=== PATIENT | female | born 1930 | race Two or more races ===

== ENCOUNTER 2019-11-30 17:04 | Inpatient (IN) | payer MEDICARE ==
[~2019-11-30] VITALS: Ht 149.9 cm; Wt 38.1 kg
[2019-11-30] MEDS ORDERED: ACETAMINOPHEN ES 500 MG TABLET PO ONE (17:30)
[2019-11-30] MEDS ORDERED: ACETAMINOPHEN ES 500 MG TABLET ONE (17:33)
[2019-11-30 17:44] LABS: BASOPHILS # (AUTO) 0.1 /CMM (0.0-0.2); BASOPHILS % (AUTO) 0.8 % (0.0-2.0); HEMATOCRIT 34 % (33-45); HEMOGLOBIN 11.2 g/dL (11.5-14.8); LYMPHOCYTES # (AUTO) 1.4 /CMM (0.8-4.8); LYMPHOCYTES % (AUTO) 18.6 % (20.0-44.0); MEAN CORPUSCULAR HGB CONC 33 g/dl (31.0-36.0); MEAN CORPUSCULAR VOLUME 95 fL (82-100); MONOCYTES # (AUTO) 0.5 /CMM (0.1-1.30); NEUTROPHILS # (AUTO) 5.5 /CMM (1.8-8.9); NEUTROPHILS % (AUTO) 71.6 % (43.0-81.0); PLATELET COUNT (AUTO) 251 /CMM (150-450); RED BLOOD CELL COUNT(AUTO) 3.56 MIL/uL (4.0-5.2); WHITE BLOOD COUNT (AUTO) 7.7 K/uL (4.3-11.0)
--- NOTE | 2019-11-30 17:46 | NUR ---
[id number], from home, c/o left arm pain s/p tripped and fall,-ko, open fracture, On room air, breathing evenly and unlabored. connected to the monitor and pulse ox. kept comfortable, will continue to monitor accordingly.
[2019-11-30 17:53] LABS: CALCIUM, SERUM 9.1 mg/dL (8.5-10.1); CREATININE 0.6 mg/dL (0.6-1.3); POTASSIUM 3.7 mmol/L (3.5-5.1)
--- NOTE | 2019-11-30 17:56 | NUR ---
ethan at bedside for xray
[2019-11-30] MEDS ORDERED: CEFAZOLIN 2 GM in IV D5W 100 ML IV ONE (18:30)
--- NOTE | 2019-11-30 18:30 | NUR ---
CALLED [facility] [phone] ITS REGINALDO
[2019-11-30] MEDS ORDERED: TDAP [DIPH/PERTUSSIS/TET] 0.5 ML VIAL IM ONE ×2 (18:54→19:00)
--- NOTE | 2019-11-30 18:59 | NUR ---
EDNICE-DAUGHTER IN LAW [phone].
[2019-11-30] MEDS ORDERED: ALEN70TA3 PO (19:14)
[2019-11-30] MEDS ORDERED: QUET25TA PO (19:14)
--- NOTE | 2019-11-30 19:14 | NUR ---
BLOOD BANK SUPERVISOR/MED RECON MED-RECON DONE. INFO OBTAINED FROM GEORGES ([phone]) FROM [facility] AND [facility].
--- NOTE | 2019-11-30 19:29 | NUR ---
LEFT FOR CT
--- NOTE | 2019-11-30 20:30 | NUR ---
REPORT GIVEN TO DK
--- NOTE | 2019-11-30 20:42 | NUR ---
PT WAS PROVIDED W/ R KNEE IMMOBILZER PER DR NAGEL'S ORDER
--- NOTE | 2019-11-30 21:15 | NUR ---
PT WAS TRANSFERRED TO BED 208 IN STABLE CONDITION
[2019-11-30 21:20] VITALS: BP 149/74
[2019-11-30] MEDS ORDERED: IV D5/0.45 NACL 1,000 ML IV PRN (21:45)
[2019-11-30] MEDS ORDERED: MAGNESIUM HYDROXIDE 30 ML UDC PO PRN (22:00)
[2019-11-30] MEDS ORDERED: ZOLPIDEM TARTRATE 5 MG TABLET PO PRN (22:00)
[2019-11-30] MEDS ORDERED: ACETAMINOPHEN 325 MG TABLET PO PRN (22:00)
[2019-11-30] MEDS ORDERED: MORPHINE SULFATE INJ 2 MG/ML DISP.SYRIN IV PRN (22:00)
[2019-11-30] MEDS ORDERED: Z GUARD REMEDY 2 OZ OINT TP PRN (22:00)
[2019-11-30] MEDS ORDERED: ONDANSETRON HCL/PF 4 MG/2 ML VIAL IVP PRN (22:00)
[2019-11-30] MEDS ORDERED: MAG HYDROX/AL HYDROX/SIMETH 30 ML UDC PO PRN (22:00)
--- NOTE | 2019-11-30 22:00 | NUR ---
ADMISSION NOTE PATIENT ADMITTED FROM ER TO [facility] BED [address] SHERMAN FROM LEFT WRIST FX. PATIENT HS HX OF DEMENTIA ALWERT AND ORIENTED X2. PATIENT IS WEARING IMMOBILIZER TO RIGHT LEG, AND HAS SPLINT TO LEFT WRIST. PATIENT HAS PATENT 18 GAUGE TO RIGHT ARM AC. ADMISSON ASSESSMENT TO BE PERFORMED USING RECORDS AND SOME INPUT FROM PATIENT BUT SHE IS POOR HISTORIAN. UNDERSTANDS ARGENTINE BUT PRIMARY LANGUAGE IS JAPENESE.
[2019-11-30] MEDS: HYDROCODONE/APAP 5/325MG 1 EACH TABLET PO PRN (22:17)
[2019-12-01] VITALS (11 sets, daily range): BP systolic 124–149; BP diastolic 60–71
--- NOTE | 2019-12-01 00:05 | NUR ---
CONSENT FOR SURGERY SIGNED FOR ORIF OF LEFT WRIST SCHEDULED TOMORROW AM WITH DR. RAMIREZ. PATIENT DECLINED THE USE OF PROFESSIONAL HEALTHCARE REPRESENTATIVE. PATIENT SIGEND CONCENTS AND VERBALIZED UNDERSTANDING OF POC.
--- NOTE | 2019-12-01 02:10 | NUR ---
PT MOVED TO RM. 203 BED 1, ATTEMPTING TO GET OOB BED ALARM SOUNDING AND PATIENT FOPUND ATTEMPTING TO GET OOB TO USE RESTROOM IN THE PROCESS. PATIENT SPLINT TO LEFT ARM CAME UNRAVELED AND FELL OFF AND BLEEDING. PATIENT HELPED BACK INTO BED. REORIENTED ON HER ACTIVITY OF BED REST. SPLINT REAPPLIED WITH JORDAN BANDAGE AND DRESSING REINFORCED WITH GAUZE. PATIENT MOVED FROM ROOM 208 BED 2 TO ROOM 203 BED 1 TO BE MONITORED MORE CLOSELY FOR SAFETY BED ALARM ACTIVE SR X2 CALL LIGHT IN REACH. WILL CONT TO MONITOR.
[2019-12-01 02:55] LABS: APPEARANCE,URINE CLEAR (CLEAR); BILIRUBIN,URINE NEGATIVE (NEGATIVE); BLOOD, URINE TRACE Ery/uL (NEGATIVE); COLOR,URINE YELLOW (YELLOW); KETONES,URINE NEGATIVE (NEGATIVE); LEUKOCYTE ESTERASE ,URINE SMALL (NEGATIVE); NITRITE, URINE NEGATIVE (NEGATIVE); PROTEIN,URINE NEGATIVE (NEGATIVE); UGLUCOSE NEGATIVE (NEGATIVE); UROBILINOGEN,URINE 0.2 EU/dL (0.2)
[2019-12-01 03:16] LABS: BACTERIA,URINE None seen /HPF (None Seen); RBC,URINE 0-2 /HPF (0-2); SQUAMOUS EPITHELIAL CELL,UR Few /HPF (None Seen); WBC,URINE 0-2 /HPF (0-3)
--- NOTE | 2019-12-01 06:30 | NUR ---
RN PM CLOSING NOTE PATIENT RESTING IN BED IN NO APPARENT DISTRESS. IMMOBILIZER TO RIGHT KNEE IN PLACE. PATIENT IS STILL WEARING SPLINT TO LEFT WRIST AND FOREARM. NO S/S OF BLEEDING AT SITE. IV RIGHT AC RUNNING D5 1/N NS AT 75 ML PER HOUR NO S/S OF INFILTRATION. PATIENT IN NO APPARENT PAIN RATED 1/10 PER FLACC. SCHEDULED FOR ORF WITH DR. RAMIREZ AT 11AM. BED DOWN LOCKED CALL LIGHT IN REACH. WILL ENDORSE POC TO DAY SHIFT RN.
[2019-12-01 06:48] LABS: BASOPHILS % (AUTO) 0.4 % (0.0-2.0); EOSINOPHILS % (AUTO) 2.4 % (0.0-6.0); HEMATOCRIT 32 % (33-45); HEMOGLOBIN 10.8 g/dL (11.5-14.8); LYMPHOCYTES # (AUTO) 1.1 /CMM (0.8-4.8); LYMPHOCYTES % (AUTO) 17.2 % (20.0-44.0); MEAN CORPUSCULAR HGB CONC 34 g/dl (31.0-36.0); MEAN CORPUSCULAR VOLUME 93 fL (82-100); MONOCYTES # (AUTO) 0.4 /CMM (0.1-1.30); MONOCYTES % (AUTO) 7.1 % (2.0-12.0); NEUTROPHILS # (AUTO) 4.5 /CMM (1.8-8.9); NEUTROPHILS % (AUTO) 72.9 % (43.0-81.0); PLATELET COUNT (AUTO) 218 /CMM (150-450); RED BLOOD CELL COUNT(AUTO) 3.44 MIL/uL (4.0-5.2); WHITE BLOOD COUNT (AUTO) 6.2 K/uL (4.3-11.0)
--- NOTE | 2019-12-01 07:04 | NUR ---
telephone consent for surgical procedure orif left wrist and consent for anesthesiology and blood transfusion recieved from daughter in law abdoul rouse. patient is resident of [facility]. mae spray i painter. [facility] phone [phone]
[2019-12-01 07:06] LABS: CALCIUM, SERUM 8.7 mg/dL (8.5-10.1); CREATININE 0.6 mg/dL (0.6-1.3); PHOSPHORUS 3.3 mg/dL (2.5-4.9); POTASSIUM 3.6 mmol/L (3.5-5.1)
[2019-12-01 07:09] LABS: THYROID STIMULATING HORMONE 1.559 uIU/mL (0.358-3.74)
--- NOTE | 2019-12-01 07:28 | NUR ---
MS RN OPENING NOTES RECEIVED PATIENT AWAKE IN BED IN NO ACUTE SIGNS OF DISTRESS. A/O X 1-2. BELARUSIAN SPEAKING, DENIES PAIN OR DISCOMFORTS AT THIS TIME. PT FOR LEFT WRIST ORIF TODAY, NPO MAINTAINED. RIGHT KNEE IMMOBILIZER IN PLACE. ON ROOM AIR, BREATHING EVEN AND UNLABORED. IV ACCESS ON RAC G#18 INTACT AND PATENT, IVF OF D5 1/2 NS @ 75ML/HR INFUSING, NO S/S OF INFILTRATIONS NOTED. SAFETY MEASURES IN PLACE: BED IN LOWEST LOCKED POSITION WITH SR UP X2. CALL LIGHT WITHIN REACH. WILL CONTINUE TO MONITOR.
[2019-12-01] MEDS: PANTOPRAZOLE 40 MG VIAL IV SCH (09:06)
--- NOTE | 2019-12-01 10:49 | NUR ---
RN NOTES PT PICKED-UP FOR SURGERY VIA HER BED.
[2019-12-01] MEDS ORDERED: BUPIVACAINE 0.5 % PF 150 MG/30 ML VIAL ONE (11:35)
[2019-12-01] MEDS ORDERED: BACITRACIN 50000 UNITS/VIAL ONE (11:35)
[2019-12-01] MEDS ORDERED: FENTANYL PF 100MCG/2ML AMPUL ONE ×2 (12:57→13:25)
[2019-12-01] MEDS ORDERED: ONDANSETRON HCL/PF 4 MG/2 ML VIAL ONE (13:20)
--- NOTE | 2019-12-01 14:12 | NUR ---
RN NOTES PATIENT RETURNED TO UNIT VIA HER BED S/P WASHOUT, DEBRIDEMENT AND ORIF OF LEFT DISTAL RADIUS FRACTURE BY DR RAMIREZ. PT SLIGHTLY LETHARGIC BUT RESPONSIVE TO VERBAL AND TACTILE STIMULI. V/S TAKEN; BP 145/66 , HR 85 . R 18 , T97.8F AND SP02 99-100% SP02 ON 02 VIA N/C @ 2LPM. PT NOTED WITH DRESSING WRAPPED WITH JORDAN BANDAGE ON LEFT LOWER ARM WITH SLING ON LEFT ARM IN PLACE. SCD ON LEFT LEG AND RIGHT KNEE IMMOBILIZER IN PLACE. ALL POST OP ORDERS MADE AND CARRIED OUT. WILL CONTINUE TO MONITOR.
--- NOTE | 2019-12-01 14:18 | NUR ---
RN NOTES INFORMED DR DELUCA THAT PT CAME BACK FROM SURGERY S/P ORIF OF LEFT RADIUS AND TO DO MED RECON.
[2019-12-01] MEDS: IV LR 1000 ML 1,000 ML IV PRN (14:22)
[2019-12-01] MEDS: ANCEF 1 G in IV D5W 50 ML IV SCH ×2 (14:45→22:37)
[2019-12-01] MEDS: HYDROCODONE/APAP 5/325MG 1 EACH TABLET PO PRN (15:13)
--- NOTE | 2019-12-01 18:47 | NUR ---
MS RN CLOSING NOTES PATIENT IN BED AWAKE AND WATCHING TV AT THIS TIME. A/O X 1-2. PANAMANIAN SPEAKING WITH LITTLE SYRIAC. NOTED WITH EPISODE OF CONFUSION AND FORGETFULNESS DURING SHIFT, REDIRECTED PRN. RIGHT KNEE IMMOBILIZER IN PLACE. PT WITH LEFT ARM SPLINT AND DRESSING C/D/I WITH SLING IN PLACE. ON ROOM AIR, BREATHING EVEN AND UNLABORED. NO SOB NOTED DURING THE DAY. IV ACCESS ON RAC G#18 INTACT AND PATENT, IVF OF LR @ 75ML/HR INFUSING, NO S/S OF INFILTRATIONS NOTED. SAFETY MEASURES IN PLACE: BED IN LOWEST LOCKED POSITION WITH SR UP X2. CALL LIGHT WITHIN REACH. ALL NEEDS AND CARE PROVIDED WELL. WILL ENDORSE TO CREDIT RISK ANALYTICS MANAGER NURSE FOR NAMITA.
--- NOTE | 2019-12-01 22:38 | NUR ---
iv leaking 18 gauge removed from right ac. new iv started to right wrist 24 gauge on one attempt. patient tolerated proocedure well.
[2019-12-02] MEDS: IV LR 1000 ML 1,000 ML IV PRN (05:31)
--- NOTE | 2019-12-02 07:20 | NUR ---
MS RN CLOSING NOTES PATIENT IN BED AWAKE . A/O X 1-2. LUXEMBOURGER SPEAKING WITH LITTLE GREENLANDIC. PT HAD MULTIPLE EPISODES OF CONFUSION AND FORGETFULNESS DURING SHIFT, REDIRECTED PRN MAINLY KEPT TRYING TO GET OB TO USE THE BR PATIENT ASSISTED WITH BATHROOM NEEDS AND RESETTLED INTO BED. RIGHT KNEE IMMOBILIZER IN PLACE. PT WITH LEFT ARM SPLINT AND DRESSING C/D/I WITH SLING IN PLACE. ON ROOM AIR, BREATHING EVEN AND UNLABORED. IV ACCESS ON RIGHT FOREARM G#24 INTACT AND PATENT, IVF OF LR @ 75ML/HR INFUSING, NO S/S OF INFILTRATIONS NOTED. SAFETY MEASURES IN PLACE: BED IN LOWEST LOCKED POSITION WITH SR UP X2. CALL LIGHT WITHIN REACH. ALL NEEDS AND CARE PROVIDED WELL. WILL ENDORSE TO DAY SHIFT FOR NAMITA.
[2019-12-02 08:00] VITALS: BP 138/76
--- NOTE | 2019-12-02 08:00 | NUR ---
RN MS NOTES PT IN BED, AWAKE, ALERT AND ORIENTED, VERBALLY RESPONSIVE, NO COMPLAINT OF PAIN AT THIS TIME, RESPIRATIONS NORMAL AND NOT LABORED, CALL LIGHT WITHIN REACH, NEEDS ATTENDED.
[2019-12-02 08:57] LABS: BASOPHILS % (AUTO) 0.1 % (0.0-2.0); EOSINOPHILS % (AUTO) 0.4 % (0.0-6.0); HEMATOCRIT 29 % (33-45); HEMOGLOBIN 9.9 g/dL (11.5-14.8); LYMPHOCYTES % (AUTO) 14.2 % (20.0-44.0); MEAN CORPUSCULAR HGB CONC 34 g/dl (31.0-36.0); MEAN CORPUSCULAR VOLUME 93 fL (82-100); MONOCYTES # (AUTO) 0.6 /CMM (0.1-1.30); MONOCYTES % (AUTO) 8.6 % (2.0-12.0); NEUTROPHILS # (AUTO) 5.3 /CMM (1.8-8.9); NEUTROPHILS % (AUTO) 76.7 % (43.0-81.0); PLATELET COUNT (AUTO) 214 /CMM (150-450); RED BLOOD CELL COUNT(AUTO) 3.15 MIL/uL (4.0-5.2); WHITE BLOOD COUNT (AUTO) 6.9 K/uL (4.3-11.0)
[2019-12-02 09:09] LABS: ALBUMIN 3.2 g/dL (3.4-5.0); BILIRUBIN,TOTAL 0.9 mg/dL (0.2-1.0); CALCIUM, SERUM 8.8 mg/dL (8.5-10.1); CREATININE 0.8 mg/dL (0.6-1.3); MAGNESIUM 1.8 mg/dL (1.8-2.4); PHOSPHORUS 2.6 mg/dL (2.5-4.9); POTASSIUM 3.7 mmol/L (3.5-5.1); TOTAL PROTEIN, SERUM 7.3 g/dL (6.4-8.2)
[2019-12-02] MEDS: PANTOPRAZOLE 40 MG VIAL IV SCH (09:55)
[2019-12-02] MEDS: ENOXAPARIN SODIUM 40 MG/0.4 ML DISP.SYRIN SQ SCH (09:58)
--- NOTE | 2019-12-02 10:48 | NUR ---
RN MS NOTES PT SEEN AND EXAMINED BY JEANNETTE LEY, PT QUESTIONS ANSWERED, RIGHT KNEE IMMOBILIZER IN PLACE, IV FLUIDS INFUSING WELL.
--- NOTE | 2019-12-02 12:48 | NUR ---
RN MS NOTES PT SEEN BY PHYSICAL THERAPIST, TOLERATED EXERCISES WELL , ABLE TO AMBULATE TO THE BATHROOM WITH ASSISTANCE, RIGHT KNEE IMMOBILIZER ON, SLING AT LEFT ARM IN PLACE. PT SEEN AND EXAMINED BY DR. HOWARD, PLAN OF CARE DISCUSSED WITH PT, VERBALIZED UNDERSTANDING.
[2019-12-02] MEDS ORDERED: ENOX40DI SQ (15:28)
[2019-12-02] MEDS ORDERED: LACT-54 PO (15:28)
[2019-12-02] MEDS ORDERED: HYDR-3972 PO (15:28)
[2019-12-02] MEDS ORDERED: MAGN400O6 PO (15:28)
[2019-12-02] MEDS ORDERED: PANT40TA2 PO (15:28)
[2019-12-02] MEDS ORDERED: CEPH-570 PO (15:34)
[2019-12-02 16:00] VITALS: BP 129/62
[2019-12-02] MEDS: ENSURE ENLIVE CHOC 237 ML CAN PO SCH (17:22)
[2019-12-02] MEDS ORDERED: QUETIAPINE FUMARATE 25 MG TABLET PO SCH (18:00)
--- NOTE | 2019-12-02 19:00 | NUR ---
RN MS NOTES PT AWAKE, ALERT AND FORGETFUL, WANTS TO SIT IN A WHEELCHAIR FOR NOW, ATE DINNER, TOLERATED WELL, SEEN BY DR. HOWARD, PLAN FOR D/C TO SNF TOMORROW, SPOKE WITH PT'S DAUGHTER DENICE, PLAN OF CARE DISCUSSED WITH HER, VERBALIZED UNDERSTANDING, DUE MEDS GIVEN, ALL NEEDS ATTENDED.
--- NOTE | 2019-12-02 19:20 | NUR ---
MS RN OPENING NOTES: RECEIVED PT IN RIANA CHAIR SHE APPEARS TO BE CONFUSED AND IS A HIGH FALL RISK PT. PT HAS A KNEE IMMOBILIZER OR RIGHT LOWER LEG. PT ALTERNATES BETWEEN SUDANESE AND GREEK AND IS A /X1-2. PT IS NOT CONNECTED TO IV FLUIDS AT THIS TIME SHE KEEPS FONDLING WITH HER IV LINE AND HER DRESSING ON LEFT ARM. PT ALSO KEEPS REMOVING LEFT ARM SLING SO IN THE MEANTIME, IT IS OFF. PT HAS IV ON R FOREARM #24 G AND IS PATENT AND INTACT. PT REORIENTED PRN. WILL CONTINUE TO MONITOR PT.
[2019-12-02 20:48] VITALS: BP 119/42
--- NOTE | 2019-12-03 04:00 | NUR ---
MS RN NOTES: PT PLACED IN BED AND IS COMFORTABLY ASLEEP. PT PLACED BACK ON IV LR 75ML/HR.
--- NOTE | 2019-12-03 07:30 | NUR ---
RN MS NOTES PT IN BED, AWAKE, ALERT AND ORIENTED, NO SIGN OF PAIN OR DISTRESS, IV FLUIDS INFUSING WELL, WITH PERIODS OF CONFUSION, BED ALARM ON AT ALL TIMES, CALL LIGHT WITHIN REACH, KEPT COMFORTABLE IN BED.
[2019-12-03] MEDS: ENSURE ENLIVE CHOC 237 ML CAN PO SCH ×2 (07:56→12:08)
[2019-12-03 08:00] VITALS: BP 105/43
[2019-12-03] MEDS: PANTOPRAZOLE 40 MG VIAL IV SCH (08:01)
[2019-12-03] MEDS: ENOXAPARIN SODIUM 40 MG/0.4 ML DISP.SYRIN SQ SCH (08:02)
--- NOTE | 2019-12-03 13:18 | NUR ---
RN MS NOTES PT IN BED, AWAKE, ALERT, DENIES PAIN, NOT IN DISTRESS, SLING AT LEFT ARM IN PLACE, IMMOBILIZER AT RIGHT LEG IN PLACE, SEEN BY DR. HOWARD, PLAN OF CARE DISCUSSED WITH PT. VERBALIZED UNDERSTANDING, DISCHARGE AND MEDICATION INSTRUCTIONS PROVIDED TO PT AND DAUGHTER IN LAW DENICE, VERBALIZED UNDERSTANDING, PT TO BE DISCHARGED TO [facility], SKIN ASSESSMENT DONE, BELONGINGS ACCOUNTED FOR, AWAITING FOR PT ELECTRONICS INSPECTOR BY CAREGIVER.
--- NOTE | 2019-12-03 14:00 | NUR ---
RN MS NOTES PT ASSISTED TO WHEELCHAIR, DENIES PAIN, NOT IN DISTRESS, PICKED UP BY CAREGIVER GEORGES, NEW MEDICATIONS CALLED IN TO [facility], PT'S PHARMACY, ASSISTED BY SALES OPERATIONS ANALYST TO HOSPITAL LOBBY VIA WHEELCHAIR, LEFT VIA PRIVATE CAR IN STABLE CONDTION.
== END 2019-12-03 14:00 | DRG 511 ==
LOC: ER 17:09 → MEDSG2 20:36
PROVIDERS: ADMIT Student in an Organized Health Care Education/Training Program; ATTEND Registered Nurse
PROC: 0PSJ04Z Reposition Left Radius with Internal Fixation Device, Open Approach (ICD-10-PCS; principal; 2019-12-01)
DX: S52.502A Unspecified fracture of the lower end of left radius, initial encounter for closed fracture (principal); S82.001A Unspecified fracture of right patella, initial encounter for closed fracture; N39.0 Urinary tract infection, site not specified; N17.9 Acute kidney failure, unspecified; S52.602A Unspecified fracture of lower end of left ulna, initial encounter for closed fracture; F03.90 Unspecified dementia, unspecified severity, without behavioral disturbance, psychotic disturbance, mood disturbance, and anxiety; D64.9 Anemia, unspecified; M19.90 Unspecified osteoarthritis, unspecified site; I25.10 Atherosclerotic heart disease of native coronary artery without angina pectoris; M81.0 Age-related osteoporosis without current pathological fracture; W01.0XXA Fall on same level from slipping, tripping and stumbling without subsequent striking against object, initial encounter; Y93.9 Activity, unspecified; Y92.009 Unspecified place in unspecified non-institutional (private) residence as the place of occurrence of the external cause
CPT/HCPCS: 36415; 70450-TC; 71045-TC; 72125-TC; 73080-TC; 73090-TC; 73100-TC; 73110; 73564-TC; 80048-TC; 80053-TC; 80061-TC; 81000-TC; 82728-TC; 83540-TC; 83735-TC; 84100-TC; 84443-TC; 85025-TC; 85610-TC; 85730-TC; 86850-TC; 87081-TC; 90715; 93307-TC; 97116-TC; 97530-TC; 97535-TC; A6403; C9113; G0378; J0690; J1100; J1650; J2405; J3010; J3490; J7060; J7120

== ENCOUNTER 2020-03-10 01:22 | Inpatient (IN) | payer MEDICARE ==
[~2020-03-10] VITALS: Ht 147.3 cm; Wt 38.6 kg
[~2020-03-10 01:22] MED LIST: ALEN70TA3 PO; CEPH-570 PO; ENOX40DI SQ; HYDR-3972 PO; LACT-54 PO; MAGN400O6 PO; PANT40TA2 PO; QUET25TA PO
[2020-03-10 01:55] LABS: BASOPHILS % (AUTO) 0.6 % (0.0-2.0); EOSINOPHILS % (AUTO) 0.6 % (0.0-6.0); HEMATOCRIT 32 % (33-45); HEMOGLOBIN 10.5 g/dL (11.5-14.8); LYMPHOCYTES # (AUTO) 0.3 /CMM (0.8-4.8); LYMPHOCYTES % (AUTO) 7.6 % (20.0-44.0); MEAN CORPUSCULAR HGB CONC 33 g/dl (31.0-36.0); MEAN CORPUSCULAR VOLUME 95 fL (82-100); MONOCYTES % (AUTO) 0.9 % (2.0-12.0); NEUTROPHILS # (AUTO) 3.8 /CMM (1.8-8.9); NEUTROPHILS % (AUTO) 90.3 % (43.0-81.0); PLATELET COUNT (AUTO) 165 /CMM (150-450); RED BLOOD CELL COUNT(AUTO) 3.37 MIL/uL (4.0-5.2); WHITE BLOOD COUNT (AUTO) 4.2 K/uL (4.3-11.0)
[2020-03-10] MEDS ORDERED: IV NS 0.9% 1,000 ML BAG IV ONE (02:00)
[2020-03-10 02:04] LABS: CALCIUM, SERUM 8.5 mg/dL (8.5-10.1); CARBON DIOXIDE 16 mmol/L (21-32); CHLORIDE 102 mmol/L (98-107); CREATININE 1.3 mg/dL (0.6-1.3); GLUCOSE 185 mg/dL (74-106); SODIUM SERUM 139 mmol/L (136-145); UREA NITROGEN, BLOOD 21 mg/dL (7-18)
[2020-03-10 02:16] LABS: ALANINE AMINOTRANSFERASE 16 U/L (12-78); ALBUMIN 2.8 g/dL (3.4-5.0); ALKALINE PHOSPHATASE 50 U/L (46-116); ASPARTATE AMINOTRANSFERASE 27 U/L (15-37); B-TYPE NATRIURETIC PEPTIDE 2200 PG/ML (0-125); BILIRUBIN,DIRECT 0.3 mg/dL (0.0-0.2); TOTAL PROTEIN, SERUM 6.7 g/dL (6.4-8.2)
--- NOTE | 2020-03-10 02:30 | NUR ---
URINE, COVID, FLU, RSV, BLOOD, AND CULTURES ALL SENT TO LAB.
--- NOTE | 2020-03-10 02:30 | NUR ---
SPOKE TO GEORGES WHO IS THE ADMINISTATOR OF THE RESIDENTIAL HOME WHERE PT LIVES. GAVE MORE INFORMATION TO WHY PT IS SICK. SAID PT HAD A FEVER OF 99.8 AND WAS GIVEN 1GRAM OF TYLENOL. ALSO HAD 1X EPISODE OF DIARRHEA TODAY.
[2020-03-10 02:31] LABS: CREATINE KINASE, TOTAL 100 U/L (26-192); FERRITIN 788 ng/mL (8-388)
--- NOTE | 2020-03-10 02:40 | NUR ---
DENICE DAUGHTER IN LAW. IN CHARGE OF MEDICAL DECISIONS FOR PT.
--- NOTE | 2020-03-10 02:45 | NUR ---
ZACH VINSON SPOKE TO PT DAUGHTER IN LAW DENICE
--- NOTE | 2020-03-10 02:45 | NUR ---
DALLAS YOUNG DNP AT BEDSIDE.
--- NOTE | 2020-03-10 02:46 | NUR ---
DALLAS YOUNG DNP AT BEDSIDE TO JEFF ALBERTO.
--- NOTE | 2020-03-10 02:53 | NUR ---
PATIENT CAME TO ER BED 5 [facility] JAS[facility]ER C/O SOB FROM [facility]. PATIENT ARRIVED WITH 89% O2 ON ROOM AIR. GIVEN 2L OF O2, NOW AT 94%. PATIENT IS AAOX2. BREATHING EVENLY AND UNLABORED ON ROOM AIR. PATIENT IS PLEASANT AND NOT IN ANY DISTRESS.
[2020-03-10 02:59] LABS: D-DIMER 8.92 mg/L(FEU (0.17-0.50)
[2020-03-10] MEDS ORDERED: ENOXAPARIN SODIUM 40 MG/0.4 ML DISP.SYRIN SQ ONE (03:00)
[2020-03-10] MEDS ORDERED: ENOXAPARIN SODIUM 40 MG/0.4 ML DISP.SYRIN SQ SCH (03:00)
--- NOTE | 2020-03-10 03:14 | NUR ---
REPORT GIVEN TO DANNA MONIQUE FOR NAMITA.
[2020-03-10] MEDS ORDERED: ZOLPIDEM TARTRATE 5 MG TABLET PO PRN (03:30)
[2020-03-10] MEDS ORDERED: ACETAMINOPHEN 325 MG TABLET PO PRN (03:30)
[2020-03-10] MEDS ORDERED: ONDANSETRON HCL/PF 4 MG/2 ML VIAL IVP PRN (03:30)
[2020-03-10] MEDS ORDERED: MAGNESIUM HYDROXIDE 30 ML UDC PO PRN (03:30)
[2020-03-10] MEDS ORDERED: Z GUARD REMEDY 2 OZ OINT TP PRN (03:30)
[2020-03-10] MEDS ORDERED: HYDROCODONE/APAP 5/325MG 1 EACH TABLET PO PRN (03:30)
[2020-03-10] MEDS ORDERED: MAG HYDROX/AL HYDROX/SIMETH 30 ML UDC PO PRN (03:30)
--- NOTE | 2020-03-10 03:40 | NUR ---
GILLES RN NOTE PATIENT ARRIVED TO UNIT AT THIS TIME VIA [place]. A&O X1. BREATHING IS EVEN AND NON LABORED. NO S/S OF SOB AT THIS TIME. ON O2 2 L VIA NC, SATURATING AT 97% AT THIS TIME. ABLE TO MAKE NEEDS KNOWN. VERBALLY RESPONSIVE IN ISRAELI, ABLE TO UNDERSTAND FEW MALAY WORDS. SPEECH IS UNCLEAR AT TIMES. PERRLA. PATIENT IS COOPERATIVE. ABLE TO ASSIST IN TURNING AND REPOSITIONING. ON MAYNARD, URINE IS CLEAR AND YELLOW IN COLOR. IV SITE ON RAC GAUGE 18 IS CLEAN, DRY, AND PATENT. PATIENT IS INCONTINENT OF BOWEL. NOTED HEALED WOUND ON SACRAL AREA. CLEANSED SACRAL AREA WITH NS, PAT, DRY, AND COVERED WITH MEPILEX. SKIN IS DRY AND WARM TO TOUCH. IN NO APPARENT DISTRESS NOTED AT THIS TIME. BED IS LOCKED AND LOWERED TO LOW POSITION FOR SAFETY. CALL LIGHT IS WITHIN EASY REACH. WILL CONTINUE TO MONITOR.
[2020-03-10 03:54] LABS: APPEARANCE,URINE TURBID (CLEAR); BILIRUBIN,URINE NEGATIVE (NEGATIVE); BLOOD, URINE LARGE Ery/uL (NEGATIVE); COLOR,URINE YELLOW (YELLOW); KETONES,URINE NEGATIVE (NEGATIVE); LEUKOCYTE ESTERASE ,URINE MODERATE (NEGATIVE); NITRITE, URINE POSITIVE (NEGATIVE); PROTEIN,URINE 100 mg/dl (NEGATIVE); UGLUCOSE NEGATIVE (NEGATIVE); UROBILINOGEN,URINE 0.2 EU/dL (0.2)
[2020-03-10 04:00] VITALS: BP 125/66
[2020-03-10 04:03] VITALS: BP 125/68
[2020-03-10] MEDS ORDERED: CEFEPIME 1 GM VIAL ONE (04:17)
[2020-03-10 04:26] LABS: BACTERIA,URINE Moderate /HPF (None Seen); RBC,URINE 21-50 /HPF (0-2); SQUAMOUS EPITHELIAL CELL,UR Few /HPF (None Seen); WBC,URINE TOO NUMEROUS TO COUN /HPF (0-3)
[2020-03-10] MEDS: CEFEPIME 1 GM in IV D5W 50 ML IV SCH (04:54)
--- NOTE | 2020-03-10 06:36 | NUR ---
GILLES RN NOTE PATIENT REMAINED STABLE SINCE ADMISSION. NO SIGNIFICANT CHANGES NOTED. NO S/S OF SOB OR DIFFICULTY BREATHING. PATIENT KEPT ON O2 2L VIA NC. WILL ENDORSE TO AM SHIFT RN FOR CONTINUATION OF CARE.
--- NOTE | 2020-03-10 07:00 | NUR ---
RN GILLES NOTE PATIENT ASLEEP BUT EASILY WOKEN UP, PATIENT IS DNR/DNI WITH RULE OUT COVID ISOLATION, PATIENT HAS 2L SATURATING >95% PATIENT A/OX1 COOPERATIVE ON THE MONITOR ST WITH 1ST DEGREE AV BLOCK, MAYNARD PATENT AND DRAINING. PATIENT RAC 18# FLUSHED AND PATIENT NO SIGNS OF INFILTRATION OR REDNESS. BED LOCKED LOWEST POSITION CALL LIGHT WITH IN REACH ALL SAFETY MEASURE IMPLEMENTED PER HOSPITAL POLICY
[2020-03-10 08:00] VITALS: BP_SYST 137; BP_DIAS 65; BP_DIAS 68
[2020-03-10] MEDS ORDERED: HYDR-4384 PO (08:21)
[2020-03-10] MEDS ORDERED: QUET50TA PO (08:21)
[2020-03-10] MEDS ORDERED: LACT-54 PO (08:21)
[2020-03-10] MEDS ORDERED: ENOXAPARIN SODIUM 30 MG/0.3 ML DISP.SYRIN SQ SCH (09:00)
--- NOTE | 2020-03-10 09:00 | NUR ---
RN GILLES - TALKED TO MRS. LAMONTE GALDAMEZ ( DAUGHTER IN LAW FOR UPDATES )
--- NOTE | 2020-03-10 09:07 | NUR ---
RN [facility] NON ADMIN LOVENOX 9AM. CHANGED TO 9 PM
[2020-03-10] MEDS: IV NS 0.9% 1,000 ML IV PRN ×2 (09:39→22:00)
[2020-03-10] MEDS: PANTOPRAZOLE 40 MG TABLET.DR PO SCH (09:39)
[2020-03-10] MEDS: POTASSIUM CL. PREMIX PERIPHER. 50 ML IV SCH ×4 (09:39→16:15)
--- NOTE | 2020-03-10 10:50 | NUR ---
MOUNTING INSPECTOR-D - LABORATORY LABORATORY UNABLE TO RUN NEW TROPONIN DUE IT EARLIER LABS BEING COMPLETED. NEEDS MORE ORDER FOR TROPONIN IN ORDER TO RUN LABS
[2020-03-10 12:00] VITALS: BP 113/51
--- NOTE | 2020-03-10 13:54 | NUR ---
RN GILLES - MIDLINE MULTIPLE IV ATTEMPTS , 3X TIMES, NOTIFIED CHARGE NURSE.
--- NOTE | 2020-03-10 14:07 | NUR ---
RN GILLES- HOLD K+ FOR MIDLINE WAITING FOR MID LINE NURSE. MEDICATION THROUGH IV STOPPED. AT THIS TIME
--- NOTE | 2020-03-10 15:00 | NUR ---
RN GILLES - MIDLINE IN PLACE DAIANA
[2020-03-10 16:00] VITALS: BP 110/53
--- NOTE | 2020-03-10 16:51 | NUR ---
rn note: Informed Dr. Pepe about patient's preliminary blood culture results
--- NOTE | 2020-03-10 16:58 | NUR ---
RN TELE1 - ENDORSED TO JOHANNA CONTINUITY OF CARE
--- NOTE | 2020-03-10 17:00 | NUR ---
Kevin note: Received endorsement from KEVIN Rogel for NAMITA.
--- NOTE | 2020-03-10 18:57 | NUR ---
RN closing note: Patient in bed. Awake, alert and oriented x2. Calm and cooperative. Reported moments of confusion due to hx of dementia. Tele monitoring showing ST with 1st degree AV block noted. IV site clean, dry, patent and intact with IV infusion of NS @ 125mls/hr being tolerated well. Isolation precaution to R/O Covid in place. No pain reported nor noted in patient. Call light in reach. Bed locked, low and at semi-doran's position. Side rails up x3. Safety ensured and observed. Due medications given. Treatment given as ordered. Endorsed to oncoming shift for NAMITA.
--- NOTE | 2020-03-10 19:05 | NUR ---
RN NOTE RECEIVED A PATIENT ALERT ORIENTED X1 VERBALLY RESPONSIVE, CONFUSED , NOTED GET OF THE BED, NOTED PULLED OUT HER MID LINE IV LINE, ON MAYNARD CATHETER URINE DRAINING WELL, YELLOW AND CLEAR, FALL RISK, ON 2L OXYGEN VIA NASAL CANNULA.WITH 95% OXYGEN SATURATION.PUT BED IN LOWEST POSITION,BED ALARM IS ON,ELEVATED HEAD OF BED FOR COMFORT MEASURE.CONTINUE TO MONITOR.
[2020-03-10 20:00] VITALS: BP 137/63
[2020-03-10] MEDS: ENOXAPARIN SODIUM 30 MG/0.3 ML DISP.SYRIN SQ SCH (21:14)
--- NOTE | 2020-03-10 22:00 | NUR ---
RN NOTES NOTED PATIENT PULLING OUT IV LINES. INSERTED NEW IV LINE ON RIGHT FOREARM GAUGE 22,STILL PATIENT TRIES TO REMOVE IV LINE, CALLED DR YOUNG AND RECEIVED ORDER FOR SOFT WRIST RESTRAINTS. ORDERS NOTED AND CARRIED OUT,WILL CONTINUE TO MONITOR.
[2020-03-11] VITALS: BP 127/56
--- NOTE | 2020-03-11 | NUR ---
RN NOTES RECEIVED LAB RESULT OF TROPONIN 0.598. MADE AWARE, NO NEW ORDER RECEIVED AT THIS TIME EXCEPT NOTIFY MD IF NEXT TROPONIN LEVEL IS GREATER THAN 1.0. WILL CONTINUE TO MONITOR.
[2020-03-11] MEDS: CEFEPIME 1 GM in IV D5W 50 ML IV SCH (03:12)
[2020-03-11 04:00] VITALS: BP_SYST 120; BP_SYST 127; BP_DIAS 58; BP_DIAS 72
[2020-03-11] MEDS: IV NS 0.9% 1,000 ML IV PRN ×2 (06:15→21:05)
--- NOTE | 2020-03-11 06:32 | NUR ---
RN CLOSING NOTE PATIENT REMAINS ALERT ORIENTED X1,BREATHING IS EVEN AND UNLABORED, NO FEVER,NO PAIN NOT ACUTE DISTRESS NOTED,STILL PENDING FOR COVID TEST RESULT,IV HYDRATION IS RUNING 125ML/HR,IV SITE IS INTACT.ALL DUE MEDS GIVEN MD ORDERED SHE TOLERATED WELL,WILL ENDORSE AM COMING NURSE FOR CONTINUATION OF CARE.
[2020-03-11 06:51] LABS: BASOPHILS % (AUTO) 0.1 % (0.0-2.0); HEMATOCRIT 30 % (33-45); HEMOGLOBIN 9.9 g/dL (11.5-14.8); LYMPHOCYTES # (AUTO) 0.7 /CMM (0.8-4.8); LYMPHOCYTES % (AUTO) 5.2 % (20.0-44.0); MEAN CORPUSCULAR HGB CONC 33 g/dl (31.0-36.0); MEAN CORPUSCULAR VOLUME 94 fL (82-100); MONOCYTES # (AUTO) 0.6 /CMM (0.1-1.30); MONOCYTES % (AUTO) 4.9 % (2.0-12.0); NEUTROPHILS # (AUTO) 11.3 /CMM (1.8-8.9); NEUTROPHILS % (AUTO) 88.8 % (43.0-81.0); PLATELET COUNT (AUTO) 143 /CMM (150-450); RED BLOOD CELL COUNT(AUTO) 3.23 MIL/uL (4.0-5.2); WHITE BLOOD COUNT (AUTO) 12.8 K/uL (4.3-11.0)
[2020-03-11 07:06] LABS: ALBUMIN 2.4 g/dL (3.4-5.0); BILIRUBIN,TOTAL 0.9 mg/dL (0.2-1.0); CALCIUM, SERUM 8.3 mg/dL (8.5-10.1); PHOSPHORUS 1.6 mg/dL (2.5-4.9); TOTAL PROTEIN, SERUM 6.4 g/dL (6.4-8.2)
[2020-03-11 07:12] LABS: THYROID STIMULATING HORMONE 0.675 uIU/mL (0.358-3.74)
[2020-03-11 07:44] LABS: C-REACTIVE PROTEIN 36.8 mg/dL (0.0-0.9)
[2020-03-11 08:00] VITALS: BP 132/59
[2020-03-11 08:23] LABS: D-DIMER 4.36 mg/L(FEU (0.17-0.50)
[2020-03-11] MEDS: PANTOPRAZOLE 40 MG TABLET.DR PO SCH (08:49)
[2020-03-11] MEDS: Magnesium 1GM/D5W 100ML PREMIX 100 ML IV SCH ×2 (10:20→16:10)
--- NOTE | 2020-03-11 11:00 | NUR ---
ECONOMIC HISTORY TEACHER 1 - PATIENT PULLED IV / MAYNARD PATIENT PULLED IV LINE, MYANARD AND TOOK OFF BILATERAL SOFT WRISTRAINTS . PATIENT IS SAFETY IN BED . PATIENT
[2020-03-11 12:00] VITALS: BP_SYST 122; BP_SYST 143; BP_DIAS 56; BP_DIAS 78
[2020-03-11] MEDS ORDERED: K PHOS NEUTRAL 250 MG TABLET PO ONE (13:30)
--- NOTE | 2020-03-11 14:56 | NUR ---
MANAGER ENTERPRISE ATTEMPTED 3X TIME IV. NOTIFIED CHARGE ,HOUSE SUP AND Addendum: 03/11/20 at 1602 by PURA FLOR RN AMEND IV INSERTED
[2020-03-11 16:00] VITALS: BP 129/80
[2020-03-11] MEDS: SOD FERRIC GLUC 125 MG in IV NS 0.9% 100 ML IV SCH (17:42)
--- NOTE | 2020-03-11 19:15 | NUR ---
RN NOTES RECEIVED A PATIENT IN BED RESTING,ALERT ORIENTEDX1 CONFUSED VERBALLY RESPONSIVE ,BREATHING IS EVEN AND UNLABORED NO PAIN NO DISCOMFORT NOTED,IV NS 0.9% RUNNING 75CC/HR IV SITE IS INTACT ON RIGHT FOREARM,SKIN IS WARM TO TOUCH,CONTINUE TO MONITOR.
--- NOTE | 2020-03-11 19:27 | NUR ---
RN TELE1 NO SIGNIFICANT CHANGE IN PATIENT CONDITION AT THIS TIME. NO PAIN, NO ACUTE RESPIRATORY DISTRESS PATIENT VITALS STABLE AT THIS TIME. BED LOCKED LOWEST POSITION CALL LIGHT WITH IN REACH ALL SAFETY MEASURES IMPLEMENTED PER HOSPITAL POLICY
[2020-03-11 20:00] VITALS: BP 145/70
[2020-03-11] MEDS: ENOXAPARIN SODIUM 30 MG/0.3 ML DISP.SYRIN SQ SCH (20:45)
[2020-03-12] VITALS (7 sets, daily range): BP systolic 108–180; BP diastolic 60–86
[2020-03-12] MEDS: CEFEPIME 1 GM in IV D5W 50 ML IV SCH (03:19)
[2020-03-12] MEDS: IV NS 0.9% 1,000 ML IV PRN ×3 (05:28→19:42)
--- NOTE | 2020-03-12 06:50 | NUR ---
RN CLOSING NOTE PATIENT IS ALERT ORIENTEDX1 CONFUSED,BREATHING IS EVEN AND UNLABORED,SETH ANY PAIN,NOT ACUTE DISTRESS NOTED,SKIN IS WARM TO TOUCH,ALL DUE MEDS GIVEN MD ORDERED,IV HYDRATION RUNNING,IV SITE IS INTACT.KEPT CLEAN AND DRY ALL THE TIME,WILL ENDORSE COMING SHIFT CONTINUATION OF CARE.
[2020-03-12 07:05] LABS: ALBUMIN 2.1 g/dL (3.4-5.0); BILIRUBIN,TOTAL 1.4 mg/dL (0.2-1.0); CALCIUM, SERUM 8.1 mg/dL (8.5-10.1); CREATININE 0.7 mg/dL (0.6-1.3); MAGNESIUM 2.2 mg/dL (1.8-2.4); PHOSPHORUS 1.6 mg/dL (2.5-4.9); POTASSIUM 3.9 mmol/L (3.5-5.1); TOTAL PROTEIN, SERUM 6.2 g/dL (6.4-8.2)
[2020-03-12] MEDS: PANTOPRAZOLE 40 MG TABLET.DR PO SCH (07:44)
[2020-03-12 07:53] LABS: BASOPHILS % (AUTO) 0.1 % (0.0-2.0); EOSINOPHILS % (AUTO) 0.6 % (0.0-6.0); HEMATOCRIT 28 % (33-45); HEMOGLOBIN 9.6 g/dL (11.5-14.8); LYMPHOCYTES # (AUTO) 0.6 /CMM (0.8-4.8); LYMPHOCYTES % (AUTO) 4.6 % (20.0-44.0); MEAN CORPUSCULAR HGB CONC 34 g/dl (31.0-36.0); MEAN CORPUSCULAR VOLUME 92 fL (82-100); MONOCYTES # (AUTO) 0.6 /CMM (0.1-1.30); MONOCYTES % (AUTO) 4.6 % (2.0-12.0); NEUTROPHILS # (AUTO) 12.8 /CMM (1.8-8.9); NEUTROPHILS % (AUTO) 90.1 % (43.0-81.0); PLATELET COUNT (AUTO) 147 /CMM (150-450); RED BLOOD CELL COUNT(AUTO) 3.06 MIL/uL (4.0-5.2); WHITE BLOOD COUNT (AUTO) 14.1 K/uL (4.3-11.0)
--- NOTE | 2020-03-12 08:00 | NUR ---
ELEVATOR MECHANIC OPENING NOTES RECERIVED PATIENT FROM MASTER CONTROL SUPERVISOR NURSE IN BED, AWAKE, CONFUSED, SPEAKS AZERI, 02 @ 2LPM VIA NASAL CANNULA, UNLABORED BREATHING, NO SIGNS OF RESPIRATORY DISTRESS, RAC #20, RIGHT HAND #22 NS AT 125ML/HR, SIDE RAILS UP.
--- NOTE | 2020-03-12 09:45 | NUR ---
VICE PRESIDENT OF PRODUCT MARKETING NOTES TALKED TO DR. SHERMAN, AND I TOLD HER PATIENT NEEDS MED RECON.
[2020-03-12] MEDS: SOD FERRIC GLUC 125 MG in IV NS 0.9% 100 ML IV SCH (13:32)
[2020-03-12] MEDS ORDERED: K PHOS NEUTRAL 250 MG TABLET PO ONE (14:00)
--- NOTE | 2020-03-12 16:38 | NUR ---
TANK TENDER NOTES RE-CHECKED BP- 160/72, HR- 106.
--- NOTE | 2020-03-12 19:31 | NUR ---
BARREL ASSEMBLY INSPECTOR CLOSING NOTES ENDORSED PATIENT FROM COAL CHUTE WORKER NURSE IN BED, AWAKE, CONFUSED, SPEAKS FAROESE, 02 @ 2LPM VIA NASAL CANNULA, UNLABORED BREATHING, NO SIGNS OF RESPIRATORY DISTRESS, NS AT 125ML/HR DISLODGED, SIDE RAILS UP FOR SAFETY.
[2020-03-12] MEDS: ENOXAPARIN SODIUM 30 MG/0.3 ML DISP.SYRIN SQ SCH (21:25)
[2020-03-13] VITALS: BP 130/58
[2020-03-13] MEDS: CEFAZOLIN 1 GM in IV D5W 50 ML IV SCH ×2 (04:34→17:02)
[2020-03-13] MEDS: IV NS 0.9% 1,000 ML IV PRN ×2 (04:37→14:47)
[2020-03-13 04:50] VITALS: BP 148/68
--- NOTE | 2020-03-13 04:54 | NUR ---
RN notes Patient lying comfortably in bed with no distress noted. Breathing even and unlabored. On 2 lpm O2 tolerating well. Alert with cofusion, ambulatory with assist. Able to follow simple commands. On bilateral soft wrist restraint released every 2 hours for comfort, circulation and hygiene. No complaint of pain or discomfort. Kept clean and dry.
[2020-03-13 08:00] VITALS: BP 142/71
--- NOTE | 2020-03-13 08:00 | NUR ---
GILLES VERIFY REP OPENING NOTES Patient lying comfortably in bed with no distress noted. Breathing even and unlabored. On 2 L O2 tolerating well. Alert with confusion, ambulatory with assist. Able to follow simple commands. On bilateral soft wrist restraint WILL CHECK every 2 hours for comfort, circulation and hygiene. No complaint of pain or discomfort. LEFT FOREARM IV IS RUNNING 125 OF NS ML/HR . SKIN IS INTACT .WILL CONTINUE TO MONITOR
[2020-03-13 08:13] LABS: BASOPHILS % (AUTO) 0.1 % (0.0-2.0); EOSINOPHILS % (AUTO) 0.3 % (0.0-6.0); HEMATOCRIT 28 % (33-45); HEMOGLOBIN 9.6 g/dL (11.5-14.8); LYMPHOCYTES # (AUTO) 0.8 /CMM (0.8-4.8); MEAN CORPUSCULAR HGB CONC 34 g/dl (31.0-36.0); MEAN CORPUSCULAR VOLUME 93 fL (82-100); MONOCYTES # (AUTO) 0.8 /CMM (0.1-1.30); MONOCYTES % (AUTO) 5.2 % (2.0-12.0); NEUTROPHILS # (AUTO) 14.2 /CMM (1.8-8.9); NEUTROPHILS % (AUTO) 89.4 % (43.0-81.0); PLATELET COUNT (AUTO) 157 /CMM (150-450); RED BLOOD CELL COUNT(AUTO) 3.04 MIL/uL (4.0-5.2); WHITE BLOOD COUNT (AUTO) 15.9 K/uL (4.3-11.0)
[2020-03-13] MEDS: PANTOPRAZOLE 40 MG TABLET.DR PO SCH (08:20)
[2020-03-13 08:55] LABS: CALCIUM, SERUM 8.1 mg/dL (8.5-10.1); CREATININE 0.8 mg/dL (0.6-1.3); PHOSPHORUS 2.3 mg/dL (2.5-4.9)
[2020-03-13 08:58] LABS: POTASSIUM 2.7 mmol/L (3.5-5.1)
--- NOTE | 2020-03-13 11:06 | NUR ---
GILLES LAP REGULATOR NOTES PT HAS CRITICAL VALUE OF POTASSIUM AND FIBRINOGEN DOCTOR LOU IS AWARE OF THOSE RESULTS.
[2020-03-13] MEDS: POTASSIUM CHLORIDE 20 MEQ POWDER PACKET NG SCH ×3 (11:08→13:05)
[2020-03-13 12:00] VITALS: BP 144/70
[2020-03-13] MEDS ORDERED: K PHOS NEUTRAL 250 MG TABLET PO ONE (12:00)
--- NOTE | 2020-03-13 14:05 | NUR ---
SWEEPER CLEANER INDUSTRIAL NOTES IV SITE WAS INFILTRATED. REMOVED AND APPLIED WARM COMPRESSION. NEW IV SITE IS ON THE LEFT HAND#22 FLUSHING WELL AND INTACT
[2020-03-13] MEDS: SOD FERRIC GLUC 125 MG in IV NS 0.9% 100 ML IV SCH (14:46)
[2020-03-13 16:00] VITALS: BP_SYST 144; BP_SYST 145; BP_DIAS 70; BP_DIAS 76
--- NOTE | 2020-03-13 18:20 | NUR ---
GILLES RN JHON NOTES PT IS RESTING NOW. ALERT AND CONFUSED.LEFT ARM #22 FLUSHING WELL AND INTACT.NS RUNNING @125 ML/HR.PT IS IN nc 2 L. BED IS IN THE LOWEST POSITION. CALL LIGHT WITHIN REACH. SAFETY MEASURED ARE IMPLEMENTED. PT HAS SOFT RESTARINTS DUE TO PULLING OUT HER IV WHEN NEEDS TO USE THE RESTROOM. WILL ENDORSED TO NIGHT SHIFTS FOR NAMITA.
--- NOTE | 2020-03-13 18:43 | NUR ---
RURAL SOCIOLOGIST NOTES NOTED WHEEZING DURING PATIENT`S RESPIRATION. NOTIFIED DR SHERMAN.
--- NOTE | 2020-03-13 19:07 | NUR ---
HOBBING PRESS OPERATOR NOTES INFORMED DR SHERMAN ABOUT THE PATIENT`S WHEEZING AND SHE ORDERED ALBUTERAL SULFATE (PROAIR) 2 PUFFS Q4HR PRN FOR WHEEZING AND SHORTNESS OF BREATH.
--- NOTE | 2020-03-13 19:10 | NUR ---
SUBSTATION SUPERINTENDENT OPENING NOTES RECEIVED PT ON BED AWAKE,SPEAKING THAI, NO SIGN AND SYMPTOMS OF RESPIRATORY DISTRESS ON O2 2L VIA NC SPO2 92% WHEEZING WAS NOTED, ON TELE MONITOR WITH READING SINUS TACHY 100'S-110'S, WITH DAIANA MIDLINE WITH ONGOING NS @ 125ML/HR INFUSING WELL, WITH BILATERAL SODT WRIST RESTRAINTS CIRCULATION CHECKED, ON DROPLET ISOLATION PRECAUTION R/O COVID, SAFETY MEASURE MAINTAINED BED ON LOWEST POSITION AND LOCKED CALL LIGHT WITHIN REACH WILL CONT TO MONITOR
[2020-03-13 20:00] VITALS: BP 155/72
[2020-03-13] MEDS: ENOXAPARIN SODIUM 30 MG/0.3 ML DISP.SYRIN SQ SCH (20:37)
--- NOTE | 2020-03-13 21:00 | NUR ---
PAYROLL TECHNICIAN NOTES REPORTED TO DR. YOUNG ABOUT THE EPISODES OF ELEVATED BP WITH NO NEW ORDER
--- NOTE | 2020-03-13 21:30 | NUR ---
teletype or varitype keyboard operator notes spoke to mirian from lab covid resut negative,supervisor of guidance and testing made aware.
--- NOTE | 2020-03-13 23:27 | NUR ---
RN NOTES PT IS COVID NEG, NO FAMILY ON THE RECORD
[2020-03-14] VITALS: BP 139/65
[2020-03-14] MEDS: ALBUTEROL FS 2.5 MG/3 ML VIAL.NEB NEB PRN ×3 (00:09→17:46)
--- NOTE | 2020-03-14 00:15 | NUR ---
SENIOR PARALEGAL NOTES GIVE REPORT TO MS SANTAMARIA RN 3W NURSE FOR NAMITA
[2020-03-14 00:55] VITALS: BP 149/69
--- NOTE | 2020-03-14 01:02 | NUR ---
RN NOTES PATIENT FROM GILLES, TRANSFERRED HERE TO ROOM 311-1. REPORT GIVEN BY GILLES NURSE ENEIDA GRIFFITHS. NO SIGNS OF ACUTE RESPIRATORY OR CARDIAC DISTRESS NOTED. ON O2 AT 2LPM VIA NASAL CANNULA, BREATHING EVEN AND UNLABORED, IV ACCESS INTACT AND PATENT, SAFETY MEASURES IN PLACE, ASPIRATION PRECAUTION EMPHASIZE, REPOSITIONED FOR COMFORT. BILATERAL SOFT WRIST RESTRAINTS, INPLACE. ALL NEEDS ANTICIPATED. REPOSITIONED FOR COMFORT. WILL CONTINUE TO MONITOR ACCORDINGLY.
[2020-03-14] MEDS: CEFAZOLIN 1 GM in IV D5W 50 ML IV SCH ×2 (04:31→16:06)
[2020-03-14 04:55] VITALS: BP 138/72
[2020-03-14 04:59] VITALS: BP 138/72
[2020-03-14] MEDS: IV NS 0.9% 1,000 ML IV PRN (05:25)
--- NOTE | 2020-03-14 07:04 | NUR ---
RN NOTES ALL NEEDS ATTENDED AND MET, ABLE TO REST AND SLEPT AT INTERVALS, SAFETY MEASURES IN PLACE, ASPIRATION PRECAUTION EMPHASIZED, CALL LIGHT WITH IN EASY REACH, BILATERAL SOFT WRIST RESTRAINTS INPLACE, ASSESSED FOR ADEQUATE CIRCULATION, WILL ENDORSE TO AM NURSE FOR CONTINUITY OF CARE.
--- NOTE | 2020-03-14 07:30 | NUR ---
BENEFITS CONSULTANT OPENING NOTES RECEIVED PT ON BED, A/OX2 DOMINICAN SPEAKING. PT NOT IN ACUTE RESPIRATORY DISTRESS, ON O2 AT 3LPM VIA N/C, AUDIBLE CRACKLES AND PRODUCTIVE COUGH. UNABLE TO SPIT OUT. HOB ELEVATED. ABD SOFT AND NON DISTENDED WITH ACTIVE BOWEL SOUNDS. DENIES PAIN AND DISCOMFORT. SKIN WARM TO TOUCH AND DRY. PT BOTH WRIST SOFT RESTRAINT HELD DUE TO CALM BEHAVIOR, WILL CONTINUE TO MONITOR. IV SITE AT DAIANA MIDLINE RUNNING NS AT 125 ML/HR, LEFT ARM #22 PATENT IN FLUSHING. TELE MONITOR SHOWS SINUS TACHYCARDIA 102. CALL LIGHT WITHIN REACH, BED IN LOW LOCKED POSITION, ALARM ON, DRX2 UP FOR SAFETY. WILL CONTINUE TO MONITOR CARE.
[2020-03-14] MEDS: PANTOPRAZOLE 40 MG TABLET.DR PO SCH (08:12)
[2020-03-14 09:42] LABS: ALBUMIN 2.3 g/dL (3.4-5.0); CALCIUM, SERUM 7.6 mg/dL (8.5-10.1); CREATININE 0.8 mg/dL (0.6-1.3); TOTAL PROTEIN, SERUM 6.7 g/dL (6.4-8.2)
[2020-03-14 09:48] LABS: POTASSIUM 2.5 mmol/L (3.5-5.1)
--- NOTE | 2020-03-14 09:55 | NUR ---
M/S RN NOTES RECEIVED CRITICAL REPORT FROM DANNA EDWARDS FROM LAB, POTASSIUM 2.5. READ BACK COMPLETED. REPORTED CRITICAL VALUE TO DR. ARMAS. 0952 GIVEN ORDERS FOR KCL 80 MEQ PO TAB NOW. ORDER READ BACK NOTED AND CARRIED OUT. WILL CONTINUE POC.
[2020-03-14] MEDS: POTASSIUM CHLORIDE 20 MEQ TAB.PRT.SR PO SCH ×2 (10:19→11:54)
--- NOTE | 2020-03-14 11:29 | NUR ---
M/S RN NOTES CALLED RT FOR PRN NEBULIZER DUE TO C/O DIFFICULTY IN BREATHING, O2 AT 3LPM LISETH N/C AT 95%, HOB ELEVATED, RESPIRATION NON LABORED, CRACKLES AUDIBLE,PT CANT SPIT OUT THE SPUTUM. WILL CONTINUE TO MONITOR
[2020-03-14] MEDS: SOD FERRIC GLUC 125 MG in IV NS 0.9% 100 ML IV SCH (13:52)
[2020-03-14 15:12] LABS: CALCIUM, SERUM 7.9 mg/dL (8.5-10.1); CREATININE 0.8 mg/dL (0.6-1.3); POTASSIUM 3.5 mmol/L (3.5-5.1)
--- NOTE | 2020-03-14 18:03 | NUR ---
M/S RN NOTES PRN NEBULIZER GIVEN BY RT DUE TO SOB, 3LPM SATING 86-90%. POST NEBULIZER, PT STATED SHE FEELS MUCH BETTER, O2 4LPM SATING 94%. HOB KEPT ELEVATED. CONTINUE TO MONITOR CARE
--- NOTE | 2020-03-14 18:58 | NUR ---
M/S RN CLOSING NOTES PT A/OX2 [place] SPEAKING. ON O2 AT 4LPM VIA N/C SATING >92%, HOB ELEVATED. ABD SOFT AND NON DISTENDED WITH ACTIVE BOWEL SOUNDS. DENIES PAIN AND DISCOMFORT. SKIN WARM TO TOUCH AND DRY. BOTH WRIST SOFT RESTRAINT HELD THROUGHOUT THE SHIFT DUE TO CALM AND COOPERATIVE BEHAVIOR. IV SITE AT [facility] MIDLINE RUNNING NS AT 125 ML/HR, LEFT ARM #22 PATENT IN FLUSHING. CALL LIGHT WITHIN REACH, BED IN LOW LOCKED POSITION, ALARM ON, SRX2 UP FOR SAFETY. ENDORSED PT CARE TO NEXT SHIFT.
--- NOTE | 2020-03-14 19:30 | NUR ---
REFUND CLERK OPENING NOTES RECEIVED PT ON BED AWAKE,SPEAKING MAL[place], ON O2 2L VIA NC SPO2 90% WHEEZING WAS NOTED, WITH [facility] MIDLINE WITH PATENT AND FLUSH IVF WAS HOLD BY AM SHIFT NURSE DUE TO POSSIBLE CONGESTION,BILATERAL SOFT WRIST RESTRAINTS WAS OFF COVID, SAFETY MEASURE MAINTAINED BED ON LOWEST POSITION AND LOCKED CALL LIGHT WITHIN REACH WILL CONT TO MONITOR
[2020-03-14 20:00] VITALS: BP 146/75
--- NOTE | 2020-03-14 21:00 | NUR ---
BLOW MOLD TECHNICIAN NOTES REPORTED TO DR. YOUNG ABOUT THE DESATURATION OF PT SPO2 78-89 VIA NC 4L, AND SOME WHEEZES AND CRACKLES, WITH ORDERS MADE AND CARRIED OUT, PT WAS PUT ON NON REBREATHER 15L SPO2 90-95
[2020-03-14] MEDS: ENOXAPARIN SODIUM 30 MG/0.3 ML DISP.SYRIN SQ SCH (21:31)
[2020-03-14 21:48] LABS: ABG BASE EXCESS -5.7 mmol/L; ABG OXYGEN SATURATION 98.3 % (92.0-98.5); ABG PCO2 27.7 mmHg (35.0-45.0); ABG PH 7.419 (7.350-7.450); ABG PO2 121.5 mmHg (75.0-100.0); AaDO2 563.8 mmHg; COHb 0.2 % (0.5-1.5); MetHb 0.2 % (0.0-1.5); O2Hb 97.9 % (94.0-97.0); SITE, ABG Left Radial; VENT MODE, BG NRB
--- NOTE | 2020-03-14 22:30 | NUR ---
BAR HELPER NOTES RELAYED TO DR. YOUNG ABOUT THE RESULT OF CXR AND ABG OF THE PT, ASK IF HE WANTS TO GIVE LASIX FOR CRACKLES AND WHEEZING BUT HE SAYS PT'S HAD WORSENING PNA AND HE WILL CHECKED WHAT ATB HE CAN GIVE NO LASIX FOR NOW JUST TITRATE O2 FOR NOW.. NOTED AND CARRIED OUT
[2020-03-15] MEDS: CEFAZOLIN 1 GM in IV D5W 50 ML IV SCH ×2 (03:35→17:29)
[2020-03-15 04:00] VITALS: BP 145/86
--- NOTE | 2020-03-15 06:55 | NUR ---
RN CLOSING NOTES PT ON BED CURRENTLY ON 02 6L VIA MASK SPO2 95% PT IS AGITATED AND WANT TO REMOVED THE MASK BILATERLA WRIST RESTRAINTS MAINTAINED RENEWED @ 2300, ON TELE MONITOR CURRENT READING SINUS TACHY 110'S ALL NEEDS ATTENDED SAFETY MEASURE MAINTAINED, BED ON LOWEST POSITION AND LOCKED SIDE RAILS UPX4 WILL ENDORSED TO AM SHIFT NURSE
[2020-03-15 07:15] LABS: ALBUMIN 2.4 g/dL (3.4-5.0); BILIRUBIN,TOTAL 0.9 mg/dL (0.2-1.0); CALCIUM, SERUM 7.6 mg/dL (8.5-10.1); MAGNESIUM 1.9 mg/dL (1.8-2.4); PHOSPHORUS 1.6 mg/dL (2.5-4.9); POTASSIUM 3.6 mmol/L (3.5-5.1); TOTAL PROTEIN, SERUM 6.7 g/dL (6.4-8.2)
[2020-03-15 07:16] LABS: BASOPHILS % (AUTO) 0.1 % (0.0-2.0); HEMATOCRIT 27 % (33-45); LYMPHOCYTES # (AUTO) 0.9 /CMM (0.8-4.8); LYMPHOCYTES % (AUTO) 5.1 % (20.0-44.0); MEAN CORPUSCULAR HGB CONC 33 g/dl (31.0-36.0); MEAN CORPUSCULAR VOLUME 93 fL (82-100); MONOCYTES # (AUTO) 0.6 /CMM (0.1-1.30); MONOCYTES % (AUTO) 3.8 % (2.0-12.0); NEUTROPHILS # (AUTO) 15.7 /CMM (1.8-8.9); PLATELET COUNT (AUTO) 213 /CMM (150-450); RED BLOOD CELL COUNT(AUTO) 2.93 MIL/uL (4.0-5.2); WHITE BLOOD COUNT (AUTO) 17.3 K/uL (4.3-11.0)
--- NOTE | 2020-03-15 07:40 | NUR ---
TELE/RN OPENING NOTES RECEIVED PATIENT ON BED CURRENTLY ON 02 6L VIA MASK SPO2 96%. PATIENT WITH BILATERAL WRIST RESTRAINTS IN PLACED. ON TELE MONITOR CURRENT READING SINUS TACHY 137 HR. SAFETY MEASURE IN PLACED, BED ON LOWEST POSITION AND LOCKED SIDE RAILS UPX4. WILL CONTINUE TO MONITOR.
[2020-03-15 08:00] VITALS: BP 139/82
[2020-03-15] MEDS: PANTOPRAZOLE 40 MG TABLET.DR PO SCH (08:53)
[2020-03-15] MEDS ORDERED: MAGNESIUM HYDROXIDE 30 ML UDC PO PRN (10:00)
[2020-03-15] MEDS ORDERED: ALENDRONATE 70 MG TABLET PO SCH (10:00)
[2020-03-15] MEDS ORDERED: POTASSIUM PHOSPHATE MM 15 MMOL in IV NS 0.9% 250 ML IV SCH (10:00)
[2020-03-15 10:12] LABS: ABG BASE EXCESS -3.5 mmol/L; ABG OXYGEN SATURATION 94.8 % (92.0-98.5); ABG PCO2 30.6 mmHg (35.0-45.0); ABG PH 7.432 (7.350-7.450); ABG PO2 76.8 mmHg (75.0-100.0); AaDO2 317.3 mmHg; COHb 0.3 % (0.5-1.5); MetHb 0.3 % (0.0-1.5); O2Hb 94.2 % (94.0-97.0); SITE, ABG Right Femoral; VENT MODE, BG SM 10 L
[2020-03-15] MEDS: POTASSIUM PHOSPHATE MM 7.5 MMOL in IV NS 0.9% 100 ML IV SCH ×2 (10:25→13:28)
[2020-03-15] MEDS: ENSURE ENLIVE CHOC 237 ML CAN PO SCH ×2 (13:00→17:40)
[2020-03-15] MEDS: SOD FERRIC GLUC 125 MG in IV NS 0.9% 100 ML IV SCH (14:29)
[2020-03-15 16:00] VITALS: BP 129/86
[2020-03-15] MEDS: MEROPENEM 500 MG in IV NS 0.9% 50 ML IV SCH ×2 (16:12→21:46)
[2020-03-15 17:08] LABS: CHLORIDE,URINE RANDOM 107 mmol/L (55-125); POTASSIUM RNDM,URINE 39 mmol/L (25-125); URINE SODIUM, RANDOM 48 mmol/l (40-220)
[2020-03-15] MEDS: QUETIAPINE FUMARATE 25 MG TABLET PO SCH (17:33)
[2020-03-15 17:49] LABS: OSMOLALITY,URINE 455 mOS/kg (340-1090)
--- NOTE | 2020-03-15 19:44 | NUR ---
HOME TEACHING GRADES 7 AND 8 TEACHER NOTES RECEIVED PATIENT AWAKE ON BED ,FRISIAN SPEAKING, ON O2 2L VIA NC SPO2 92% WHEEZING WAS NOTED, TELE MONITOR READS SINUS TACH 110's, WITH DAIANA MIDLINE WITH PATENT AND FLUSH IVF, BILATERAL SOFT WRIST RESTRAINTS IN PLACE, ASSESSED FOR ADEQUATE CIRCULATION. SAFETY MEASURE MAINTAINED BED ON LOWEST POSITION AND LOCKED CALL LIGHT WITHIN EASY REACH WILL CONTINUE TO MONITOR ACCORDINGLY.
--- NOTE | 2020-03-15 19:45 | NUR ---
RN NOTES PATIENT IS NO LONGER ON TELE MONITOR, PULSE OXIMETER READS [id number] SATING 96% ON 6 LPM VIA FACE MASK.
[2020-03-15 20:00] VITALS: BP 132/85
--- NOTE | 2020-03-15 20:15 | NUR ---
TELE/RN CLOSING NOTES PATIENT IS ON BED CURRENTLY ON 02 6L VIA MASK SPO2 99%. TEMP 97.2. PATIENT WITH BILATERAL WRIST RESTRAINTS IN PLACED. NO RESPIRATORY DISTRESS NOTED. NO COMPLAINED OF PAIN AT THIS TIME. SEEN AND EXAMINED BY MD WITH ORDERS MADE AND CARRIED OUT. ALL DUE MEDICATION WAS GIVEN. CHECKED PATIENT EVERY 2 HOURS. SAFETY MEASURE IN PLACED, BED ON LOWEST POSITION AND LOCKED SIDE RAILS UPX4. WILL ENDORSED TO DIAMOND POLISHER FOR NAMITA.
[2020-03-15] MEDS: ENOXAPARIN SODIUM 30 MG/0.3 ML DISP.SYRIN SQ SCH (21:23)
--- NOTE | 2020-03-16 00:54 | NUR ---
RN NOTES CALLED AND SPOKE TO DALLAS YOUNG DNP REGARDING LACTIC ACID 3.1. TO INCREASE IVF NS AT 15O ML/HR UNTIL IN THE MORNING AND CONTINUE TO MONITOR. PATIENT IS RESTING COMFORTABLY ON 6 LPM O2 VIA FACE MASK, SATING 92% - 96%. WILL CONTINUE TO MONITOR ACCORDINGLY.
[2020-03-16] MEDS: IV NS 0.9% 1,000 ML IV PRN (01:07)
[2020-03-16 01:44] LABS: BILIRUBIN,DIRECT 0.3 mg/dL (0.0-0.2)
--- NOTE | 2020-03-16 02:10 | NUR ---
RN NOTES CALLED AND SPOKE TO DALLAS YOUNG DNP. LACTIC ACID IS 2.7. CONTINUE TO MONITOR AND KEEP IVF NS TO 150ML/HR. WILL CONTINUE TO MONITOR ACCORDINGLY.
[2020-03-16] MEDS: MEROPENEM 500 MG in IV NS 0.9% 50 ML IV SCH ×3 (05:19→21:13)
[2020-03-16 07:27] LABS: BASOPHILS % (AUTO) 0.1 % (0.0-2.0); HEMATOCRIT 28 % (33-45); HEMOGLOBIN 9.1 g/dL (11.5-14.8); LYMPHOCYTES # (AUTO) 0.9 /CMM (0.8-4.8); LYMPHOCYTES % (AUTO) 4.6 % (20.0-44.0); MEAN CORPUSCULAR HGB CONC 32 g/dl (31.0-36.0); MEAN CORPUSCULAR VOLUME 94 fL (82-100); MONOCYTES # (AUTO) 0.7 /CMM (0.1-1.30); MONOCYTES % (AUTO) 3.5 % (2.0-12.0); NEUTROPHILS # (AUTO) 18.9 /CMM (1.8-8.9); NEUTROPHILS % (AUTO) 91.8 % (43.0-81.0); PLATELET COUNT (AUTO) 221 /CMM (150-450); RED BLOOD CELL COUNT(AUTO) 2.99 MIL/uL (4.0-5.2); WHITE BLOOD COUNT (AUTO) 20.6 K/uL (4.3-11.0)
[2020-03-16] MEDS: PANTOPRAZOLE 40 MG TABLET.DR PO SCH (07:30)
--- NOTE | 2020-03-16 07:31 | NUR ---
RN NOTES ALL NEEDS ATTENDED AND MET, RESTING COMFORTABLY AT THIS TIME, SAFETY MEASURES IN PLACE, ASPIRATION PRECAUTION EMPHASIZED, ENDORSED TO AM NURSE FOR CONTINUITY OF CARE.
[2020-03-16 07:44] LABS: CALCIUM, SERUM 7.7 mg/dL (8.5-10.1); CREATININE 0.9 mg/dL (0.6-1.3); MAGNESIUM 2.1 mg/dL (1.8-2.4); PHOSPHORUS 1.8 mg/dL (2.5-4.9); POTASSIUM 3.5 mmol/L (3.5-5.1)
[2020-03-16 08:00] VITALS: BP 158/73
[2020-03-16] MEDS: ENSURE ENLIVE CHOC 237 ML CAN PO SCH ×3 (08:00→17:53)
--- NOTE | 2020-03-16 08:00 | NUR ---
tele tobacco sorter: notes received pt in bed awake, but appears lethargic. hob elevated. on o2 via simple mask at 6l/min. held breakfast due to condition. will continue to monitor.
--- NOTE | 2020-03-16 09:00 | NUR ---
m/s lining marker: notes found mask off pt, noted desat to 67. applied o2 mask to 10ll, sat went up to 88%. change to nonrebreather mask. dr. wood and rdanya at bedside and instructed us if pt sat doesn't change above 90% in 30 minutes, may apply high flow with non rebreather mask. pt remains lethargic and held meds and breakfast due to high risk of aspiration. will continue to monitor.
--- NOTE | 2020-03-16 09:30 | NUR ---
m/s interactive producer: notes slowly titrate pt back to simple mask at 8l/min and satting 96%. hob elevated. pt remains lethargic. reality orientation provided prn. will continue to monitor.
--- NOTE | 2020-03-16 11:00 | NUR ---
m/s sales and leasing agent: notes pt remains on 8/min via simple mask and satting at 94%. despite being lethargic, once her liseth soft restraint released and reposition, pt tends to grab her oxygen mask first. pt remains congested and still need oxygen supplementation. hob elevated. turned and repositioned. will continue to monitor.
[2020-03-16] MEDS ORDERED: POTASSIUM PHOSPHATE MM 15 MMOL in IV NS 0.9% 250 ML IV SCH (11:30)
[2020-03-16] MEDS: POTASSIUM PHOSPHATE MM 7.5 MMOL in IV NS 0.9% 100 ML IV SCH ×2 (12:33→17:03)
--- NOTE | 2020-03-16 12:45 | NUR ---
m/s food service driver: notes pt able to wiggle her out of oxygen mask and started to desat, place mask back on and increase oxygen to 10l. dr. wood made aware and to keep her oxygen above 90%. cn made aware. will continue to monitor.
[2020-03-16] MEDS ORDERED: IV D5W 1,000 ML IV ONE (13:00)
--- NOTE | 2020-03-16 13:00 | NUR ---
m/s assistant construction superintendent: notes dr. montoya here and added vanco ivpb for pharmacy to dose. order acknowledge. will continue to monitor.
[2020-03-16] MEDS ORDERED: FEE PK DOSING 1 MIN EA MC ONE (13:42)
[2020-03-16] MEDS ORDERED: VANCOMYCIN 1 GM in IV D5W 250 ML IV ONE ×2 (14:00→15:30)
--- NOTE | 2020-03-16 15:00 | NUR ---
m/s multiple pressure riveter operator: notes pt remains on simple mask at 10l/min and satting at 94%-95%. hob elevated. released and repositioned liseth wrist restraint for circulation. pt remains high risk for aspiration. held all meals and medications due to condition. will continue to monitor.
[2020-03-16 16:00] VITALS: BP 125/68
--- NOTE | 2020-03-16 16:00 | NUR ---
m/s checker: notes move pt to 304-1 with belongings via bed. kept comfortable.
[2020-03-16] MEDS: QUETIAPINE FUMARATE 25 MG TABLET PO SCH (17:53)
--- NOTE | 2020-03-16 18:00 | NUR ---
m/s terminal operations manager: notes remains congested and on oxygen at 10l/min via simple mask. hob elevated. potassium phosphate still infusing. satting at 96%. sitter at bedside. will continue to monitor.
--- NOTE | 2020-03-16 19:20 | NUR ---
m/s service delivery analyst: notes report given to samm (rn) for continuity of care.
--- NOTE | 2020-03-16 19:45 | NUR ---
RN NOTES RECEIVED PATIENT AWAKE, ON 10LPM O2 VIA FACE MASK, SATING 95% AT THIS TIME, NO SIGNS OF ACUTE RESPIRATORY DISTRESS NOTED, LETHARGIC, SAFETY MEASURES IN PLACE, ASPIRATION PRECAUTION EMPHASIZE, BED IN LOW LOCKED POSITION, SITTER AT BEDSIDE, IV ACCESS INTACT AND PATENT, POTASSIUM PHOSPHATE INFUSING AT THIS TIME. KEEP CLEAN WARM DRY AND COMFORTABLE. REPOSITIONED FOR COMFORT. WILL CONTINUE TO MONITOR ACCORDINGLY.
[2020-03-16 20:45] VITALS: BP 114/50
[2020-03-16] MEDS: ENOXAPARIN SODIUM 30 MG/0.3 ML DISP.SYRIN SQ SCH (21:13)
[2020-03-17] MEDS: MEROPENEM 500 MG in IV NS 0.9% 50 ML IV SCH ×3 (05:31→20:46)
[2020-03-17 06:36] LABS: BASOPHILS % (AUTO) 0.2 % (0.0-2.0); HEMATOCRIT 28 % (33-45); HEMOGLOBIN 9.2 g/dL (11.5-14.8); LYMPHOCYTES # (AUTO) 0.7 /CMM (0.8-4.8); LYMPHOCYTES % (AUTO) 3.4 % (20.0-44.0); MEAN CORPUSCULAR HGB CONC 33 g/dl (31.0-36.0); MEAN CORPUSCULAR VOLUME 95 fL (82-100); MONOCYTES # (AUTO) 0.6 /CMM (0.1-1.30); MONOCYTES % (AUTO) 3.2 % (2.0-12.0); NEUTROPHILS # (AUTO) 18.2 /CMM (1.8-8.9); NEUTROPHILS % (AUTO) 93.2 % (43.0-81.0); PLATELET COUNT (AUTO) 204 /CMM (150-450); RED BLOOD CELL COUNT(AUTO) 2.95 MIL/uL (4.0-5.2); WHITE BLOOD COUNT (AUTO) 19.5 K/uL (4.3-11.0)
--- NOTE | 2020-03-17 06:46 | NUR ---
RN NOTES ALL NEEDS ATTENDED AND MET. PATIENT DOZING OFF, ON 10LPM O2 VIA FACE MASK, SATING 95% AT THIS TIME, NO SIGNS OF ACUTE RESPIRATORY DISTRESS NOTED, LETHARGIC, SAFETY MEASURES IN PLACE, ASPIRATION PRECAUTION EMPHASIZE, BED IN LOW LOCKED POSITION, SITTER AT BEDSIDE, IV ACCESS INTACT AND PATENT, POTASSIUM PHOSPHATE INFUSING AT THIS TIME. KEEP CLEAN WARM DRY AND COMFORTABLE. REPOSITIONED FOR COMFORT. WILL ENDORSE TO AM NURSE FOR CONTINUITY OF CARE.
[2020-03-17] MEDS: PANTOPRAZOLE 40 MG TABLET.DR PO SCH (07:30)
--- NOTE | 2020-03-17 07:35 | NUR ---
RN OPENING NOTE Patient is resting in bed, A/O x1, responds to name bu turning head. Patient is non-verbal. Patient presents with diminshed lung sounds and desaturates quickly when she tries to remove simple mask. she is currently saturating 90-92% on 10L simple face mask. Bilateral soft wrist restraints in place due to pulling of o2 face mask and IV lines. Circulation checked and patient turned and repositioned. DAIANA midline noted, clean and intact flushing well. Bed is in lowest position, side rails x3 in upright position, fall, safety and aspiration precautions enforced. Will continue with plan of care.
[2020-03-17 07:41] LABS: CALCIUM, SERUM 7.3 mg/dL (8.5-10.1); CREATININE 0.9 mg/dL (0.6-1.3); MAGNESIUM 2.2 mg/dL (1.8-2.4); PHOSPHORUS 2.5 mg/dL (2.5-4.9); POTASSIUM 4.3 mmol/L (3.5-5.1)
[2020-03-17 08:00] VITALS: BP 138/79
[2020-03-17] MEDS: ENSURE ENLIVE CHOC 237 ML CAN PO SCH ×3 (08:00→18:00)
[2020-03-17] MEDS ORDERED: VANCOMYCIN 500 MG in IV D5W 100 ML IV SCH (08:00)
[2020-03-17] MEDS ORDERED: IV D5W 1,000 ML IV ONE (10:00)
--- NOTE | 2020-03-17 14:00 | NUR ---
RN NOTE Patient desaturating to 84%-87% on 10L simple mask. Changed to 15L non re-breather saturating 94%. Vital signs stable, patient able to respond to name, will continue to monitor.
--- NOTE | 2020-03-17 15:00 | NUR ---
RN NOTE Spoke with patient's daughter Sydnie to update on patient condition.
[2020-03-17 15:05] LABS: CALCIUM, SERUM 7.5 mg/dL (8.5-10.1); POTASSIUM 4.2 mmol/L (3.5-5.1)
--- NOTE | 2020-03-17 15:41 | NUR ---
RN NOTE Patient is back from laparoscopic appendectomy. Vital signs BP 122/67 HR 95 RR 18 O2 93% on RA T 97.4 F. Pain level is 7/10 in the lower abdomen. 3 surgical dressings noted in lower abdomen, clean dry and intact with small amount of drainage in the medial abdomen. Patient is A/O showing no signs of acute distress. Will continue to monitor. Addendum: 03/17/20 at 1544 by ALEX COOK RN please disregard this note. Wrong patient.
[2020-03-17 16:00] VITALS: BP 126/59
[2020-03-17] MEDS: QUETIAPINE FUMARATE 25 MG TABLET PO SCH (18:00)
--- NOTE | 2020-03-17 18:10 | NUR ---
RN NOTE Patient not able to swallow medication at this time. Risk for aspiration. Held PM meds.
--- NOTE | 2020-03-17 19:26 | NUR ---
RN CLOSING NOTE Patient is resting in bed, A/O x1, responds to name bY turning head. Patient is non-verbal. Patient is saturating 94% on 15.0 L non-rebreather mask. Bilateral soft wrist restraints in place due to pulling of o2 face mask and IV lines. Circulation checked and patient turned and repositioned. DAIANA midline noted, clean and intact flushing well. All patient needs met, all due medications given, patient kept clean and dry throughout shift. Bed is in lowest position, side rails x3 in upright position, fall, safety and aspiration precautions enforced. Will endorse to power and recovery shift engineer.
--- NOTE | 2020-03-17 20:00 | NUR ---
MS/RN OPENING NOTES RECEIVED PATIENT IN BED, ALERT X1, ABNLE TO MAKE GOOD EYE CONTACT ON 10 LITER MASK SATURATING AT 96%, PATIENT FRAIL AND WEAK, BED BOUND REQUIRE MONITORING AND WITH CONFUSION PATIENT REMOVING IV SITE AND SIMPLE MASK , REQUIRE RESTRAINT FOR SAFETY. RECEIVED REPORT FROM AM RN FOR NAMITA. BED BOUNND AND INCONTINENT,.BED ALARM ON, MONITORED FOR ANY CHANGES.
[2020-03-17 20:26] VITALS: BP 133/74
[2020-03-17] MEDS: ENOXAPARIN SODIUM 30 MG/0.3 ML DISP.SYRIN SQ SCH (20:49)
--- NOTE | 2020-03-17 21:42 | NUR ---
MS/RN NOTES PATIENT WAS PRONOUNCED BY EPIC DR DR. RAM, PATIENT PALE AND WITH NO PULSE, DNR CODE STATUS, FAMILY WAS CONTACTED DENICE ABURTO AND PROVIDED INFORMATION THAT SHE IS GIVING CONSENT FOR THE RELEASE OF BODY TO BE GIVEN TO [facility] AT [facility],
--- NOTE | 2020-03-17 22:57 | NUR ---
[facility] contacted for patient .
--- NOTE | 2020-03-17 22:58 | NUR ---
mortuary of choice tristen painting at [facility]
--- NOTE | 2020-03-17 23:07 | NUR ---
RECEIVED [facility] CASE # [id number] AND WITH NO ORDER TO PROCEED.
--- NOTE | 2020-03-17 23:54 | NUR ---
PER SOCIAL WORKER MASTERS NUPUR PER JORGE L WILL BE COMING AT 0100 AND WILL BE COMING TO ROBOTICS TECHNOLOGIST THE PATIENT AT ROOM 304-1.
--- NOTE | 2020-03-18 02:15 | NUR ---
mortuary from [employer] arrived at 0215, identification of body and infpormation and signature obtained for body release with denture, shoes and clothing received, id band on and midline of elizabeth removed earlier, rn cosignatory by charge nurse Keli.
== END 2020-03-17 21:42 | disposition expired | DRG 871 ==
LOC: EDBD 01:24 → ER 01:24 → TELE-TD 02:44 → TELE1 03-11 07:58 → TELE 03-14 00:49 → MED 03-14 08:19
PROVIDERS: ADMIT Student in an Organized Health Care Education/Training Program; ATTEND Nurse Practitioner Acute Care
PROC: 05HY33Z Insertion of Infusion Device into Upper Vein, Percutaneous Approach (ICD-10-PCS; 2020-03-10)
PROC: 05HB33Z Insertion of Infusion Device into Right Basilic Vein, Percutaneous Approach (ICD-10-PCS; principal; 2020-03-13)
DX: A41.51 Sepsis due to Escherichia coli [E. coli] (principal); I21.4 Non-ST elevation (NSTEMI) myocardial infarction; J96.01 Acute respiratory failure with hypoxia; J18.9 Pneumonia, unspecified organism; N17.0 Acute kidney failure with tubular necrosis; E87.2 Acidosis; E44.0 Moderate protein-calorie malnutrition; G93.40 Encephalopathy, unspecified; N39.0 Urinary tract infection, site not specified; D68.59 Other primary thrombophilia; E87.0 Hyperosmolality and hypernatremia; F03.90 Unspecified dementia, unspecified severity, without behavioral disturbance, psychotic disturbance, mood disturbance, and anxiety; E86.0 Dehydration; I25.10 Atherosclerotic heart disease of native coronary artery without angina pectoris; E87.6 Hypokalemia; R65.20 Severe sepsis without septic shock; Z66 Do not resuscitate; Z79.83 Long term (current) use of bisphosphonates; Z79.01 Long term (current) use of anticoagulants; I70.0 Atherosclerosis of aorta; M19.90 Unspecified osteoarthritis, unspecified site; M81.0 Age-related osteoporosis without current pathological fracture; Z87.81 Personal history of (healed) traumatic fracture; Z98.890 Other specified postprocedural states; Z74.09 Other reduced mobility; E83.39 Other disorders of phosphorus metabolism; D64.9 Anemia, unspecified; F09 Unspecified mental disorder due to known physiological condition
CPT/HCPCS: 36415; 36600; 71045-TC; 80048-TC; 80053-TC; 80061-TC; 80076-TC; 81000-TC; 82248-TC; 82436-TC; 82550-TC; 82728-TC; 82803-TC; 83540-TC; 83605-TC; 83615-TC; 83735-TC; 83880; 83935-TC; 84100-TC; 84132-TC; 84133-TC; 84300-TC; 84443-TC; 84484-TC; 85025-TC; 85378-TC; 85385-TC; 85730-TC; 86140-TC; 87040-TC; 87081-TC; 87086-TC; 87186-TC; 93307-TC; 97116-TC; 97530-TC; A4216; A4623; G0378; J0690; J0692; J1650; J2185; J2916; J3370; J3475; J3480; J3490; J7030; J7050; J7060; J7070; U0003-CS